=== PATIENT | female | born 1955 ===

== ENCOUNTER 2021-09-28 08:57 | Day surgery (SDC) | payer MEDICARE, MEDICAID ==
[~2021-09-28] VITALS: Ht 160 cm; Wt 98.2 kg
[2021-09-28 09:59] VITALS: BP 144/77; PULSE 70; TEMP 97.7
[2021-09-28] MEDS ORDERED: PRILOSEC 20MG20 MG PO (10:05)
[2021-09-28] MEDS ORDERED: LIORESAL 1010 MG/TAB PO (10:05)
[2021-09-28] MEDS ORDERED: PROZAC 20MG20 MG PO (10:06)
[2021-09-28] MEDS ORDERED: ZOCOR 20MG20 MG PO (10:06)
[2021-09-28] MEDS ORDERED: DYAZIDE 25 MG-31 CAP PO (10:07)
[2021-09-28 11:15] VITALS: BP 112/67; PULSE 69
[2021-09-28 11:40] VITALS: BP 121/66; PULSE 69; TEMP 97.6
--- NOTE | 2021-09-28 11:40 | NUR ---
Pt arrived from endo suite, drowsy but oriented. Pt was assisted into chair from cart, gait is unsteady. Vitals obtained. Verbal report obtained. was in to speak with the pt. Ice water and a warm muffin provided. Call presley is within reach on beside table. Will continue to monitor per intervals.
--- NOTE | 2021-09-28 11:55 | NUR ---
Vitals obtained. The patient denies nausea. No vomiting and expressed desire to be discharged. She states "the muffin was very good". Call presley remains within reach.
[2021-09-28 12:10] VITALS: BP 116/65; PULSE 70
--- NOTE | 2021-09-28 12:10 | NUR ---
Vitals obtained. IV discontinued. Catheter tip intact. Pressure dressing applied. NO redness or swelling noted. DC instructions and educational material was reviewed with the patient. The patient asked if she was dilated during the procedure. The RN told her that was dilated, and educated her as to why that happens. The patient denied needing assistance changing into her personal clothes. Call presley remains within reach.
--- NOTE | 2021-09-28 12:27 | NUR ---
Pt was dismissed from our unit via wheelchair by SHAWNEE Gutierres and transferred into the care of her granddaughter who is present to drive. The patient has her DC packet in hand, as well as her personal belongings
[2021-09-28 15:01] VITALS: BP 121/66; PULSE 71
== END 2021-09-28 12:28 | disposition home or self-care (01) ==
LOC: SDCO 08:57
DX: K21.00 Gastro-esophageal reflux disease with esophagitis, without bleeding (principal); K44.9 Diaphragmatic hernia without obstruction or gangrene; K22.4 Dyskinesia of esophagus; K22.2 Esophageal obstruction; E78.5 Hyperlipidemia, unspecified; E66.01 Morbid (severe) obesity due to excess calories; Z79.899 Other long term (current) drug therapy
CPT/HCPCS: C1726; J2704; J7030